=== PATIENT | female | born 1940 | race Caucasian/White ===

== ENCOUNTER → 2016-11-26 | Outpatient (CLI) | payer MEDICARE, BC ==
--- NOTE | 2016-11-26 15:44 | CT ---
EXAMINATION TYPE: CT sinus wo con DATE OF EXAM: 11/26/2016 COMPARISON: NONE HISTORY: 76-year-old female Frequent nose bleeds CT DLP: 578 mGycm Automated exposure control for dose reduction was used. TECHNIQUE: Noncontrast axial views of the paranasal sinuses were obtained. Coronal reconstructions pe rformed. FINDINGS: The frontal, ethmoid, maxillary and sphenoid sinuses are clear and well pneumatized. There is no mucosal thickening or air-fluid level. Reactive darion- osteogenesis is not seen. There is no destruction of the osseous nails of the paranasal sinuses. The osteomeatal complexes are patent. Slight rightward nasal septal deviation. The visualized brain shows mild to moderate cortical atrophy and either old lacunar infarct or large perivascular space in the right basal ganglia and chronic ischemic white matter hypodensities in both subinsular regions. The orbits are normal in appearance. Visualized mastoid air cells and middle ear cavities are well pneumatized. Reformatted images confirm above findings. IMPRESSION: No significant paranasal sinus disease seen.
== END | disposition home or self-care (01) ==
LOC: RADCTMAIN 14:38
PROVIDERS: ATTEND Otolaryngology
DX: R04.0 Epistaxis (principal)
CPT/HCPCS: 70486

== ENCOUNTER → 2021-12-12 | Outpatient (CLI) | payer BC, MEDICARE ==
[2021-12-12 09:26] VITALS: BP 148/81; PULSE 84; RESP 18; TEMP 98.1
--- NOTE | 2021-12-12 09:41 | P.PAINCN ---
History of Present Illness - Reason for Consult Consult date: 12/12/21 - History of Present Illness This is a 51 years old female with a chronic history of low back pain started several years ago she denies any initiating event, patient reported that she is being treated in [place] for her low back pain and she had multiple pain management interventions done over there, including epidural steroid injection and facet injection and sacroiliac joint injection, patient able to ambulate freely without difficulty she denies any motor or sensory deficits but she feels that pain intensity interfere with her quality of life and Fantasma of daily livings, patient tried topical pain medication and she tried physical therapy in the past without any significant benefit and she had interventional pain management, she reported that the pain localized in the low back area with radiation to the posterior lateral aspect of her lower extremity bilaterally, she reported that currently pain is under control, but she wanted to establish a relationship with us in this way in the future when she has pain she can follow- up with us. Past Medical History History of Any Multi-Drug Resistant Organisms: None Reported Smoking Status: Never smoker, Unknown if ever smoked Physical Exam Vitals: Vital Signs Temp Pulse Resp BP Pulse Ox 12/12/21 09:13 98.1 F 84 18 148/81 95 Intake and Output 12/11/21 12/12/21 12/12/21 22:59 06:59 14:59 Other: Weight 52.163 kg Physical Examinations : -Constitutiona : Cooperative , not in acute distress . -HEENT : nech : supple , no Lymphadenopathy , normal thyroid size . : eyes : no ptosis , no icterus, no photophobia . - neurologic : Cranial nerve II to XII intact , no focal neurological deffecit . -psychatric : alert , oriented X 3 , appropriate affect , intact judgment and insight . -Lymphatic : no Lymphadenopathy . - musculoskeltal : Lumber spine moter stegnth lower extremities ,thigh and legs 5/5 Right side , 5/5 Left side deep tendon reflexes : normal Knee Jerk , normal ankle Jerk lumber facet Loading Test =positive Right , positive Left Range of motion of the lumbar spine Flexion 30 degrees, extension 10 degrees strait leg raising test = negative bilaterally Fabere test= negative bilaterally . mild tenderness over the Sacroiliac joint on the Right , and Left sides Results Comments: MRI of the lumbar spine= lumbar spondylosis with lumbar facet arthropathy and lumbar degenerative disc disease and mild lumbar spinal stenosis Assessment and Plan Plan: Assessment and plan=1-lumbar spondylosis with lumbar facet arthropathy without myelopathy. 2-lumbar degenerative disc disease. In the future patient will be with candidate to have diagnostic medial branch block lumbar area at L4 5 and L5-S1.and possible RFA. (Previously patient had lumbar epidural steroid injection and medial branch block and sacroiliac joint injection all done in [place] in one sessions , and we don't have any documentation about the result of the treatment) for this reason we have to repeat the diagnostic medial branch block. Time with Patient: Greater than 30 PQRS Measure Charge Sheet Measure #130: Documentation of Current Meds in Medical Chart: Patient's medications documented in chart Measure #226: Tobacco Use: Screen & Cessation Intervention: Pt not a tobacco user Measure #111: Pneumonia Vaccination: Pneumococcal vaccine administered or previously received Measure #47: Advance Care Plan: Advance care planning discussed & documented, pt chose/unable to give Measure #412: Opioid Treatment Agreement: No documentation of signed opioid treatment agreement Measure #408: Opioid Therapy Follow-up Evaluation: Patient had NO f/u eval minimum every 3 months during opioid therapy Measure #131: Pain Assessment & Follow-up: Pain positive & plan documented Measure #431: Unhealthy Alcohol Use Preventative Care & Scrn: Patient not identified as an unhealthy alcohol user Mode of Arrival: Ambulatory - Pain Location Bilateral Lower Back Non-Pharmacological Interventions: Physical Therapy Pharmacological Interventions: Epidural, Medication, PRN Medication, Topical Medication PQRS Narrative: Blood Pressure 148/81 Pain Intensity [Bilateral 15 Lower Back] Scale Used Numeric (1 - 10) Hx Alcohol Use (MH) Yes: daily wine
== END ==
LOC: PNWHC3 08:28
PROVIDERS: ATTEND Specialist
DX: M47.26 Other spondylosis with radiculopathy, lumbar region (principal); M51.16 Intervertebral disc disorders with radiculopathy, lumbar region; M48.061 Spinal stenosis, lumbar region without neurogenic claudication
CPT/HCPCS: 99211

== ENCOUNTER 2021-12-17 09:43 | Emergency (ER) | payer MEDICARE ==
[2021-12-17 09:50] VITALS: BP 159/108; PULSE 95; RESP 18; TEMP 98
--- NOTE | 2021-12-17 10:34 | ED ---
ENT HPI - General Chief complaint: ENT Stated complaint: Ear Pain Time Seen by Provider: 12/17/21 09:51 Source: patient, RN notes reviewed Mode of arrival: ambulatory Limitations: no limitations - History of Present Illness Initial comments: 81-year-old female presents emergency Department with chief complaint of right sided ear, head pain. Patient states that started last night or so. Patient states it's spasmodic in nature. Patient states that she primary has pain behind her right ear denies anyrash, swelling. She does wear hearing aids has not had any change in this denies any inner ear pain no dizziness states it seemed to follow-up on the muscle on the right side of her head. - Related Data Allergies Allergy/AdvReac Type Severity Reaction Status Date / Time thimerosal Allergy Swelling Verified 12/17/21 09:50 Review of Systems ROS Statement: Those systems with pertinent positive or pertinent negative responses have been documented in the HPI. ROS Other: All systems not noted in ROS Statement are negative. Past Medical History Additional Past Medical History / Comment(s): hearing aids, spinal stenosis History of Any Multi-Drug Resistant Organisms: None Reported Past Surgical History: Orthopedic Surgery Additional Past Surgical History / Comment(s): bilateral knees, left wrist, left arm, cataract sx Smoking Status: Former smoker Past Alcohol Use History: Daily Past Drug Use History: None Reported General Exam Limitations: no limitations General appearance: alert, in no apparent distress Head exam: Present: atraumatic, normocephalic, normal inspection Eye exam: Present: normal appearance, PERRL, EOMI. Absent: scleral icterus, conjunctival injection, periorbital swelling ENT exam: Present: normal exam, normal oropharynx, mucous membranes moist Neck exam: Present: normal inspection, full ROM. Absent: tenderness, meningismus, lymphadenopathy Respiratory exam: Present: normal lung sounds bilaterally. Absent: respiratory distress, wheezes, rales, rhonchi, stridor Cardiovascular Exam: Present: regular rate, normal rhythm, normal heart sounds. Absent: systolic murmur, diastolic murmur, rubs, gallop, clicks Neurological exam: Present: alert, oriented X3 Skin exam: Present: warm, dry, intact, normal color. Absent: rash Course Vital Signs 12/17/21 09:44 Temperature 98.0 F Pulse Rate 95 Respiratory 18 Rate Blood Pressure 159/108 O2 Sat by Pulse 98 Oximetry Medical Decision Making - Medical Decision Making 81-year-old presented for right mastoid pain, spasmodic pain. CT is obtained rule out mastoiditis or any other concerning findings without acute findings on CT. Patient will be discharged discussed early shingles this may be related to nerve or muscle pain. Patient provided pain relief return parameters were discussed. Disposition Clinical Impression: Pain of right mastoid Disposition: HOME SELF-CARE Condition: Stable Instructions (If sedation given, give patient instructions): Neck Pain (ED) Additional Instructions: Please return to the Emergency Department if symptoms worsen or any other concerns. Is patient prescribed a controlled substance at d/c from ED?: No Referrals: None,Stated [Primary Care Provider] - 1-2 days Juan Early DO [Doctor of Osteopathic Medicine] - 1-2 days Time of Disposition: 11:40
--- NOTE | 2021-12-17 11:19 | CT ---
EXAMINATION TYPE: CT mastoid wo con DATE OF EXAM: 12/17/2021 COMPARISON: Sinus CT 2017.. HISTORY: Right side mastoid pain no injury. CT DLP: 323.9 mGycm. Automated Exposure Control for Dose Reduction was Utilized. TECHNIQUE: CT scan of internal auditory canal is performed without contrast, thin cut axial images ar e obtained, coronal reformatted images are also reviewed. FINDINGS: Osseous structures are demineralized. There are new bilateral soft tissue calcifications an teriorly just inferior to the bilateral zygomas of uncertain etiology. Suspect dystrophic calcificati ons. Some soft tissue nodularity bilaterally is present slightly larger on the right. No well-formed fluid collection or drainable abscess. Impacted molar tooth right maxillary sinus floor redemonstrated posteriorly. The external auditory canals are patent bilaterally. Mastoid air cells show no evidence of abnormal opacification bilaterally. The middle ear ossicles are symmetric and unremarkable. There is no evid ence of suspicious surrounding soft tissue density to suggest cholesteatoma. The scutum is preserved bilaterally. The cochlea and the semicircular canals are symmetric and unremarkable. Vestibular aq ueduct and internal carotid canal appear unremarkable. Visualized paranasal sinuses are clear. Temporomandibular joints are maintained bilaterally. No suspi cious bony destruction is evident. IMPRESSION: No significant acute abnormality seen to account for patient's symptoms.
[2021-12-17] MEDS ORDERED: ACET/COD 300 MG/30 MG STARTER PACK 6 TAB BTL PO STA (11:35)
== END 2021-12-17 12:11 | disposition home or self-care (01) ==
LOC: EC 09:43
DX: H92.01 Otalgia, right ear (principal); Z87.891 Personal history of nicotine dependence; Z88.7 Allergy status to serum and vaccine
CPT/HCPCS: 70486; 99283

== ENCOUNTER 2024-01-02 11:12 | Emergency (ER) | payer MEDICARE ==
[2024-01-02] MEDS ORDERED: DEXAMETHASONE SOD PHOSPHATE 10 MG/ML 1 ML VIAL ONE (11:58)
== END 2024-01-02 12:18 | disposition home or self-care (01) ==
LOC: EC 11:12
CPT/HCPCS: 96372; 99283